=== PATIENT | female | born 1965 | race Caucasian/White ===

== ENCOUNTER → 2020-07-19 01:47 | Outpatient (CLI) | payer BC, SELFPAY ==
[2020-07-19 19:39] LABS: SARS-CoV-2 RNA PCR Negative
== END ==
PROVIDERS: PCP Internal Medicine; Visit Provider Internal Medicine Gastroenterology
DX: Z01.812 Encounter for preprocedural laboratory examination (principal); Z20.822 Contact with and (suspected) exposure to COVID-19
CPT/HCPCS: C9803; U0003; U0005

== ENCOUNTER 2020-07-22 00:34 | Day surgery (SDC) | payer BC, SELFPAY ==
[2020-07-10 10:05] VITALS: BMI 34.7
[2020-07-22 06:27] VITALS: BP 118/74; PULSE 80; RESP 18; TEMP 36.3; O2SAT 97; BMI 35.9
[2020-07-22] MEDS: LACTATED RINGERS 1,000 ML 150 ML IV CONT (06:34)
--- NOTE | 2020-07-22 07:04 | PM.HPGS ---
History of Present Illness History of Present Illness Consent: Risks, benefits, and alternatives have been discussed and questions answered. Patient agrees to proceed with procedure. Chief complaint: Neoplasm Screening Narrative: David Jiménez is a 55 year old female He is here for colon cancer screening. She has had a polyp removed in the past Review of Systems Review of Systems: All systems reviewed & are unremarkable except as noted in HPI and below PMFSH Social History Social History Smoking status: Never smoker Alcohol intake: current Substance use: never Substance use type: does not use Living arrangements: with family Spiritual care concerns: No Meds Home Medications and Allergies Home Medications Medication Instructions Recorded Confirmed Type Calcium + D 600 mg PO DAILY 07/10/20 07/10/20 History cholecalciferol (vitamin D3) 25 mcg PO DAILY 07/10/20 07/10/20 History [Vitamin D3] ncnwssitzccr-Vc-gawb-minerals 1 tablet PO DAILY 07/10/20 07/10/20 History [Multiple Vitamin, Womens] Allergies Allergy/AdvReac Type Severity Reaction Status Date / Time No Known Allergies Allergy Verified 07/22/20 06:26 Vital Signs Vital Signs - 24 hr 07/22/20 06:27 Temperature 36.3 C L Pulse Rate 80 Respiratory Rate 18 Blood Pressure 118/74 Pulse Oximetry 97 Exam Resp: Auscultation: clear to auscultation bilaterally Cardio: Rate: regular rate Rhythm: regular rhythm GI: GI Palp: Yes Soft to palpation and No Tenderness to palpation present (GI) Assessment and Plan Assessment and plan (1) Colon cancer screening: Code(s): Z12.11 - Encounter for screening for malignant neoplasm of colon Status: Acute Assessment and Plan: Colonoscopy with possible biopsy or polypectomy or cautery or injection of substances.
--- NOTE | 2020-07-22 07:12 | WPDANESEPPF ---
Anes - Initial Pre Proc Eval Procedure: Operation Date: 07/22/20 07:30 Proposed Procedures p Screening Colonoscopy - Kasi Durbin MD Date/Time: 07/22/20 07:12 Surgeon: Kasi Durbin MD Pre Op Diagnosis: Neoplasm Screening Patient Data Age: 55 Gender: F Height: 5 ft 2 in Weight: 89 kg Last Vital Signs Temp 97.3 F L 07/22/20 06:27 Pulse 80 07/22/20 06:27 Resp 18 07/22/20 06:27 BP 118/74 07/22/20 06:27 Pulse Ox 97 07/22/20 06:27 Allergies Allergy/AdvReac Type Severity Reaction Status Date / Time No Known Allergies Allergy Verified 07/22/20 06:26 Home Medications Medication Instructions Recorded Confirmed Type Calcium + D 600 mg PO DAILY 07/10/20 07/10/20 History cholecalciferol (vitamin D3) 25 mcg PO DAILY 07/10/20 07/10/20 History [Vitamin D3] fjsgtgwykyvh-Rb-ybll-minerals 1 tablet PO DAILY 07/10/20 07/10/20 History [Multiple Vitamin, Womens] Patient hx anesthesia problems: none Family hx anesthesia problems: none PMFSH Past Medical History Medical History (Updated 07/22/20 @ 07:12 by Jey Del Rosario MD) Healthy adult Social History Social History Smoking status: Never smoker Alcohol intake: current Substance use: never Substance use type: does not use Living arrangements: with family Spiritual care concerns: No Anes - Eval Final PreProcedure Day of Procedure 07/22/20 07:12 Patient weight: obese Heart: regular rate and rhythm Lungs: clear to auscultation Airway: Mallampati scale class II Neurological: alert and oriented Last oral intake: >/= 8 hours ASA classification: II Emergent: no Anesthetic plan: proceed Anesthesia type and monitoring: general GIVS and standard monitoring Informed Consent: The patient's anesthetic plan and its attendant risks and benefits were discussed with the patient/family/POA. Questions were solicited and answers provided to the satisfaction of the patient/family/POA.
[2020-07-22 07:46] VITALS: BP 121/70; PULSE 73; RESP 18; O2SAT 99
[2020-07-22 07:56] VITALS: BP 122/71; PULSE 76; RESP 17; O2SAT 98
[2020-07-22 08:06] VITALS: BP 140/87; PULSE 65; RESP 18; O2SAT 100
== END 2020-07-22 08:15 | disposition home or self-care (01) ==
PROVIDERS: PCP Internal Medicine; Visit Provider Internal Medicine Gastroenterology
PROC: 0DJD8ZZ Inspection of Lower Intestinal Tract, Via Natural or Artificial Opening Endoscopic (ICD-10-PCS; CPT 45378; principal; 2020-07-22 07:30)
DX: Z12.11 Encounter for screening for malignant neoplasm of colon (principal); Z86.010 Personal history of colon polyps; E66.9 Obesity, unspecified; Z68.35 Body mass index [BMI] 35.0-35.9, adult
CPT/HCPCS: 45378; J2704; J7120

== ENCOUNTER → 2021-01-03 10:05 | Outpatient (CLI) | payer BC, SELFPAY ==
--- NOTE | ~2021-01-03 | CT_ITS ---
EXAMINATION: CT abdomen pelvis w con DATE: 01/03/2021 11:06 INDICATION: Back and flank pain. Microhematuria. TECHNIQUE: Computed tomography (CT) of the abdomen and pelvis was performed with 100 cc Omnipaque 350 intravenous contrast. Automated exposure control and iterative reconstruction technique were employe d. Exam dose: 1031.93 mGy-cm total exam DLP. COMPARISON: None. FINDINGS: The lung bases are clear of infiltrate or consolidation. Heart size is normal. No pericardi al or pleural effusion. The liver, gallbladder, bile ducts, spleen, pancreas, pancreatic duct, and adrenal glands appear norm al. There is a nonspecific approximately 8 mm upper pole right renal hypoenhancing lesion. Differential d iagnosis includes renal cyst, calyceal diverticulum or hypoenhancing renal neoplasm. Given the histor y of microhematuria, further evaluation is recommended. Consider renal ultrasound or renal MRI. The kidneys otherwise appear unremarkable. No urinary tract calculus or hydroureteronephrosis. The ur inary bladder is unremarkable. The uterus and adnexal areas are unremarkable. Normal caliber of the abdominal aorta. No intraperitoneal or retroperitoneal or pelvic mass lesion or adenopathy or ascites. Normal appendix. No bowel obstruction, bowel wall thickening, pneumatosis or intraperitoneal free air is detected. Included skeletal structures are unremarkable; no suspicious osteolytic or osteoblastic lesions. IMPRESSION: 8 mm upper pole right renal indeterminate hypoenhancing lesion; renal ultrasound examina tion and/or renal MRI are recommended considering the history of microhematuria Reviewed, dictated and finalized at [facility]. Reviewed, dictated and finalized at [facility]. IMPRESSION: 8 mm upper pole right renal indeterminate hypoenhancing lesion; re nal ultrasound examination and/or renal MRI are recommended considering the his tory of microhematuria
== END ==
PROVIDERS: PCP Internal Medicine; Visit Provider Physician Assistant Medical
DX: M54.9 Dorsalgia, unspecified (principal); N28.9 Disorder of kidney and ureter, unspecified
CPT/HCPCS: 74177; Q9967

== ENCOUNTER → 2021-01-20 11:00 | Outpatient (CLI) | payer BC, SELFPAY ==
--- NOTE | ~2021-01-20 | MR_ITS ---
EXAMINATION: MR renal wo/w con DATE: 01/20/2021 12:13 INDICATION: Renal lesion TECHNIQUE: Magnetic resonance imaging (MRI) of the abdomen was performed without and with 17 mL Multi aston intravenous contrast. Sequences included coronal T2-weighted SS-FSE, coronal and axial FS 2D-F IESTA, axial STIR FSE, axial T2-weighted SS-FSE, axial T2-weighted FS SS-FSE, axial diffusion-weighte d SE, axial dual-echo T1-weighted FSPGR, and axial and coronal T1-weighted LAVA. Postcontrast axial T 1-weighted LAVA images were obtained in a time course. Postcontrast coronal T1-weighted LAVA images w ere obtained. COMPARISON: CT dated 01/03/2021 FINDINGS: Size is normal. No pericardial or pleural effusion. There are 3 cuboid tunnel gallstones within the o therwise normal-appearing gallbladder. No wall thickening or pericholecystic inflammatory stranding t o suggest acute cholecystitis. Liver, spleen, pancreas, bilateral adrenal glands and left kidney are normal. 9 mm T2 hyperintense nonenhancing cyst at the upper pole of the right kidney. Visualized port ion of the bowels are unremarkable. No pathologically enlarged abdominal lymphadenopathy. Normal bone marrow signal throughout. IMPRESSION: 1. 9 mm nonenhancing cyst at the upper pole the right kidney. 2. Cholelithiasis. Reviewed, dictated and finalized at [facility].
[2021-01-20 11:51] LABS: Estimated Glomerular Filt Rate > 60
== END ==
PROVIDERS: PCP Internal Medicine; Visit Provider Physician Assistant Medical
DX: N28.89 Other specified disorders of kidney and ureter (principal); K80.20 Calculus of gallbladder without cholecystitis without obstruction
CPT/HCPCS: 74183; A9577